=== PATIENT | male | born 1990 | race Caucasian/White ===

== ENCOUNTER 2017-08-23 16:36 | Emergency (ER) | payer OTHER ==
[~2017-08-23] VITALS: Ht 167.6 cm; Wt 63.5 kg
[2017-08-23] MEDS ORDERED: BACTRIM DS TAB1 EACH PO (16:56)
[2017-08-23] MEDS ORDERED: NAPROSYN500 MG PO (16:56)
[2017-08-23 17:02] VITALS: BP 129/73
== END 2017-08-23 17:03 | disposition home or self-care (01) ==
LOC: M.ERS 16:36
DX: S80.862A Insect bite (nonvenomous), left lower leg, initial encounter (principal); L08.9 Local infection of the skin and subcutaneous tissue, unspecified; W57.XXXA Bitten or stung by nonvenomous insect and other nonvenomous arthropods, initial encounter; Y93.89 Activity, other specified; Y92.89 Other specified places as the place of occurrence of the external cause; Y99.8 Other external cause status